=== PATIENT | male | born 1980 | race African-American/Black ===

== ENCOUNTER 2020-10-19 11:11 | Outpatient (REF) | payer MEDICAID, OTHER, SELFPAY | END 2020-10-19 11:12 | disposition home or self-care (01) | LOC: HO.LAB 11:11 | PROVIDERS: Visit Provider Internal Medicine | DX: Z20.828 Contact with and (suspected) exposure to other viral communicable diseases (principal) | CPT/HCPCS: C9803; U0003 ==

== ENCOUNTER 2020-10-19 11:35 | Emergency (ER) | payer MEDICAID, OTHER, SELFPAY ==
--- NOTE | 2020-10-19 11:53 | ED.GENADULT ---
HPI - General Adult General Chief complaint: General Medical Stated complaint: Covid symptoms Time Seen by Provider: 10/19/20 11:53 Source: patient and family Mode of arrival: ambulatory Limitations: no limitations History of Present Illness HPI narrative: just had COVID test here because he's worried he has it, [place] came [place] complaint: body aches, doesn't feel, well COVID exposure Onset (ago): day(s) (5) Severity: moderate Pain Consistency: constant Relieving factors: none Exacerbating factors: none Associated symptoms: fever/chills, headaches and loss of appetite Review of Systems Review of Systems: Constitutional : positive Fever, positive Chills, positive fatigue, positive Malaise ENT/Mouth : no sore throat, no runny nose Eyes: No Discharge Cardiovascular : No Chest Pain, No SOB Respiratory : No Cough, No Sputum Gastrointestinal : No Nausea, No Vomiting, No Diarrhea Genitourinary : No Dysuria, No Urinary Frequency Musculoskeletal : positive Myalgia Skin : No rash Neuro : No Headache PMFSH Past Medical History Attestation statement: The following information was validated with the patient. Medical History Asthma Social History Social History (Updated 10/19/20 @ 12:05 by Kristina Lenz DO) Smoking Status: Never smoker Advance Directives: No Advance Directives Information Provided: Yes Physical Exam Vital Signs: Appearance: Alert. Oriented X3. No acute distress. Eyes: Pupils equal, round and reactive to light. ENT: Pharynx normal. Neck: Normal inspection. Neck supple. CVS: Normal heart rate and rhythm. Pulses normal. Respiratory: No respiratory distress. Breath sounds normal. Abdomen: Soft and nontender. Skin: Skin warm and dry. Normal skin color. Normal skin turgor. Extremities: No lower extremity edema. No calf ttp Neuro: Oriented X 3. No motor deficit. No sensory deficit. Medical Decision Making MDM Narrative Medical decision making narrative: patient already had COVID test today, here for work note and nausea medicine with partner - not toxic, clear lungs, stable for DC with zofran and work note Discharge Plan Discharge Clinical Impression: Acute viral syndrome Patient Disposition: Home, Self-Care Instructions: Viral Syndrome (ED), COVID-19 (Coronavirus Disease 2019) (ED) Additional Instructions: return to ED for any worsening symptoms or concerns Stand Alone Forms: Work/School Release
== END 2020-10-19 12:37 | disposition home or self-care (01) ==
PROVIDERS: Emergency Provider Emergency Medicine
DX: M79.10 Myalgia, unspecified site (principal); Z20.828 Contact with and (suspected) exposure to other viral communicable diseases
CPT/HCPCS: 99281; 99283

== ENCOUNTER 2022-02-04 11:12 | Outpatient (REF) | payer OTHER, SELFPAY ==
[2022-02-04 13:34] LABS: Alanine Aminotransferase 31 U/L (0-40); Albumin Level 4.3 g/dL (3.5-5.0); Alkaline Phosphatase 63 U/L (39-117); Anion Gap 12 (12-20); Aspartate Amino Transferase 30 U/L (5-37); Bilirubin Total 1.5 mg/dL (0.0-1.0); Blood Urea Nitrogen 15 mg/dL (9-16); Calcium 9.1 mg/dL (8.4-10.2); Carbon Dioxide 27 mmol/L (22-29); Chloride 104 mmol/L (96-108); Cholesterol 179 mg/dL; Estimated Glomerular Filt Rate > 60; Glucose Fasting 94 mg/dL (60-99); HDL Cholesterol 56 mg/dL; LDL Cholesterol Calculated 115 mg/dl; Potassium 3.8 mmol/L (3.3-5.1); Sodium 139 mmol/L (135-145); Total Protein 7.7 g/dL (6.5-8.0); Triglycerides 40 mg/dL
[2022-02-04 13:55] LABS: TSH reflex Free T4 1.28 uIU/mL (0.32-4.0)
== END 2022-02-04 11:13 | disposition home or self-care (01) ==
LOC: HO.HMGCLDS 11:12
PROVIDERS: PCP Family Medicine; Visit Provider Family Medicine
DX: Z00.00 Encounter for general adult medical examination without abnormal findings (principal)
CPT/HCPCS: 36415; 80053; 80061; 84443

== ENCOUNTER 2022-06-06 15:28 | Emergency (ER) | payer OTHER, SELFPAY ==
--- NOTE | ~2022-06-06 | CT_ITS ---
EXAMINATION: CT SOFT TISSUE NECK WITH CONTRAST CLINICAL INFORMATION: Dysphagia, weight loss, fever COMPARISON: None TECHNIQUE: Following the intravenous administration of 100 mL of Omnipaque 350 intravenous contrast, helical imaging was performed in the axial plane with generation of coronal and sagittal reformatted images. This CT examination was performed using dose optimization techniques as appropriate, variously including the following: *Automated exposure control *Adjustment of mA and/or kV according to patient size (this includes techniques or standardized protocols for targeted exams where dose is matched to indication/reason for exam; i.e. extremities or head) *Use of iterative reconstruction technique DLP: . mGy-cm FINDINGS: No cervical adenopathy is identified. The parotid glands are homogeneous in attenuation. The submandibular glands are normal. No contour abnormality or pathologic enhancement is seen within the oral cavity or pharyngeal mucosal space. The laryngeal structures are normal. The parapharyngeal fat is preserved. The carotid sheath vasculature opacify normally. No extra mucosal soft tissue mass or fluid collection is seen. No retropharyngeal fluid collection is seen. The thyroid gland is normal. The superior mediastinum is unremarkable. The lung apices are clear. The mastoid air cells and visualized portions of the paranasal sinuses are well-aerated. The temporomandibular joints are normal. No periapical disease is identified. Mild degenerative disc space height loss and anterior endplate osteophytosis at C6-C7. No acute osseous abnormality or suspicious lytic or sclerotic osseous lesion The imaged portions of the brain parenchyma are unremarkable. CT/CT soft tissue neck w IV con IMPRESSION: Unremarkable examination.
--- NOTE | ~2022-06-06 | CT_ITS ---
EXAMINATION CT CHEST, ABDOMEN AND PELVIS WITH CONTRAST CLINICAL INFORMATION: Abdominal pain. Difficulty swallowing. Fever and weight loss. Evaluate for malignancy. COMPARISON: None. TECHNIQUE: Multidetector volumetric CT imaging of the chest, abdomen and pelvis was obtained after the administration of 85 mL of intravenous Omnipaque 350 without immediate adverse reactions. Coronal and sagittal reformats were reviewed. This CT examination was performed using dose optimization techniques as appropriate, variously including the following: *Automated exposure control *Adjustment of mA and/or kV according to patient size (this includes techniques or standardized protocols for targeted exams where dose is matched to indication/reason for exam; i.e. extremities or head) *Use of iterative reconstruction technique DLP: 2350 mGy-cm. FINDINGS: CHEST LUNGS/PLEURA: The lungs are clear with no evidence of inflammation or nodules. There is no pleural effusion. No pleural mass or thickening. MEDIASTINUM/AMELIA: Mild cardiomegaly. No pericardial effusion. Great vessels normal caliber. No mediastinal or hilar lymphadenopathy. CHEST WALL/AXILLA: Unremarkable. ABDOMEN/PELVIS HEPATOBILIARY: Liver normal in size, contour and morphology. No suspicious lesions. No intra or extrahepatic biliary dilation. Gallbladder unremarkable. PANCREAS: Unremarkable. SPLEEN: Unremarkable. ADRENAL GLANDS: Unremarkable. KIDNEYS, URETERS AND BLADDER: Kidneys normal in size, axis and morphology demonstrating symmetric enhancement. There is a 2.3 cm cyst in the lower pole left kidney which is benign and requires no further follow-up. No hydronephrosis or urinary calculi. Ureters normal in course and caliber. Bladder grossly unremarkable.. GASTROINTESTINAL TRACT: No bowel related abnormalities. PELVIC VISCERA: Mild prostatomegaly. There is asymmetric prominence of the right prostate gland. There is a periprostatic fat stranding and fat stranding about the seminal vesicles. LYMPH NODES: No lymphadenopathy. PERITONEUM/BODY WALL: Unremarkable. VASCULAR STRUCTURES: Unremarkable. OSSEOUS STRUCTURES There is a sclerotic lesion in the left iliac bone favored representing bone island. No additional focal osseous lesions are identified. No fractures. CT/CT abdomen pelvis w IV con IMPRESSION: * No evidence of intrathoracic malignancy. * Prostatomegaly with asymmetric prominence of the right prostate. There is also fat stranding about the prostate and seminal vesicles. These findings may relate to prostatitis, however an underlying prostate lesion is not excluded given the asymmetry. Correlate with PSA levels, digital rectal examination MRI of the prostate as clinically indicated. * There is a sclerotic lesion in the left iliac bone which is favored representing bone islands, however given the prostate findings, osseous metastasis is not entirely excluded. Consider nonemergent CT scan for further evaluation.
--- NOTE | ~2022-06-06 | CT_ITS ---
EXAMINATION: CT HEAD WITHOUT CONTRAST CLINICAL INFORMATION: Headache, fever, weight loss COMPARISON: None TECHNIQUE: Contiguous axial imaging was performed from the skull base to vertex without intravenous administration of contrast. This CT examination was performed using dose optimization techniques as appropriate, variously including the following: *Automated exposure control *Adjustment of mA and/or kV according to patient size (this includes techniques or standardized protocols for targeted exams where dose is matched to indication/reason for exam; i.e. extremities or head) *Use of iterative reconstruction technique DLP: 765 mGy-cm FINDINGS: There is no evidence of acute intracranial hemorrhage or territorial infarction. No abnormal mass effect or midline shift is seen. Sawyer to white matter differentiation is well preserved. No extra-axial fluid collections are identified. The ventricles are normal in size. There is no abnormal attenuation within the brain parenchyma. The osseous structures and soft tissues are normal. The mastoid air cells and visualized portions of the paranasal sinuses are well aerated. CT/CT head/brain wo IV con IMPRESSION: No acute intracranial pathology.
[2022-06-06 17:44] VITALS: BP 136/87; PULSE 110; RESP 19; TEMP 37.7; O2SAT 97; BMI 30.2
[2022-06-06 18:24] LABS: Appearance Urine CLEAR; Color Urine YELLOW; Glucose Urine UA NEG (NEG); Leukocyte Esterase Urine NEG (NEG); Nitrite Urine NEG (NEG); Specific Gravity - Urine >= 1.030 (1.005-1.025); Urine Blood TRACE (NEG); Urine Ketones NEG (NEG); Urine Protein NEG (NEG-TRACE)
[2022-06-06 18:35] LABS: Bacteria Urine TRACE /LPF; RBC Urine 0 /HPF (0); WBC Urine 0 /HPF (0-4)
[2022-06-06 21:20] LABS: Basophils Percent Auto 0.2 % (0-2); Eosinophils Percent Auto 0.1 % (0-4); Hematocrit 36.6 % (42.0-52.0); Hemoglobin 12.5 g/dl (14.0-18.0); Imm Gran Abs Auto 0.06 X10*3/uL (0.00-0.03); Imm Gran Pct Auto 0.5 % (0.0-0.4); Lymphocytes Absolute Auto 1.3 X10*3/uL (1.2-4.9); MANUAL DIFF FLAG SCAN; Mean Corpuscular HGB Conc 34.2 g/dl (31.0-36.0); Mean Corpuscular Hemoglobin 27.4 pg (27.0-33.0); Mean Corpuscular Volume 80.3 fL (80.0-98.0); Mean Platelet Volume 8.9 fL (9.4-12.4); Monocytes Absolute Auto 1.9 X10*3/uL (0.1-1.2); Monocytes Percent Auto 15.2 % (2-11); Neutrophils Absolute Auto 9.3 x10*3/uL (2.0-8.3); Platelet Count 255 X10*3/uL (160-400); Red Blood Count 4.56 X10*6/uL (4.60-5.80); Red Cell Distribution Width 13.5 % (11.0-16.0); SCAN SMEAR FLAG 1; White Blood Count 12.6 X10*3/uL (4.8-10.8)
[2022-06-06 21:40] LABS: Anion Gap 9 (12-20); Blood Urea Nitrogen 11 mg/dL (9-16); Calcium 8.5 mg/dL (8.4-10.2); Carbon Dioxide 30 mmol/L (22-29); Chloride 103 mmol/L (96-108); Creatinine Clr Calc Pharmacy 128.5; Estimated Glomerular Filt Rate > 60; Glucose Random 102 mg/dL (60-115); Potassium 3.8 mmol/L (3.3-5.1); Sodium 138 mmol/L (135-145)
[2022-06-06 21:44] LABS: SLIDE REVIEW VERIFIED
--- NOTE | 2022-06-07 00:20 | ED_ITS ---
HPI - General Adult General Chief complaint: General Medical Stated complaint: Fever Headache Cough Time Seen by Provider: 06/06/22 23:49 Source: patient and family (, Mariana) Mode of arrival: ambulatory Limitations: language barrier (Mongolian speaking only, from [facility]) History of Present Illness HPI narrative: 42-year-old male who presents emergency department for evaluation of multiple complaints. According to his , the patient has been sick for approximately 3 months. The patient initially had left lower back pain but then the pain shifted to his right lower back. He has been complaining of difficulty urinating, he described the difficulty as having to put a lot of pressure on his bladder in order to urinate. He states that he has also had some burning with urination. Patient is also been having a dry nonproductive cough that is been very persistent times months. Patient states that he occasionally coughs up blood. He has also had difficulty swallowing solids but not liquids. Over the last 3 weeks the patient has had fever mainly at night. He has had a constant moderate to severe headache which is worse at night. He has also had severe weakness and fatigue. The believes that he has had at least 20 lb weight loss. Patient has had occasional episodes of emesis. His states Today, the patient had increased difficulty urinating with increased dysuria, he was feeling very tired, weak and fatigued with severe body aches therefore came to emergency department to be seen. The patient is from [facility]. The last time was in [facility] was in June 2021 and he was not ill while he was there. He is not aware of any recent tick bites. 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 His is here in the emergency department with him. She states that they have tested him multiple times for COVID-19 and he has been negative. She also told me that he had a visit to the [facility] Emergency Department approximately 3 month prior with a negative workup. Related Data Previous Rx's Medication Instructions Recorded clindamycin phosphate 1 % topical 1 appl topical DAILY 30 days #75 mL 02/10/22 gel, once daily (Clindagel) back brace #1 ea 03/22/22 cyclobenzaprine 10 mg tablet 10 mg PO TID 1 month #90 tabs 04/05/22 gabapentin 600 mg tablet 600 mg PO QID 1 month #120 tabs 04/05/22 ibuprofen 800 mg tablet 800 mg PO Q8H #90 tabs 04/05/22 prednisone 20 mg tablet 40 mg PO DAILY 5 days #10 tabs 04/05/22 Allergies Allergy/AdvReac Type Severity Reaction Status Date / Time No Known Allergies Allergy Verified 06/06/22 17:44 Review of Systems Review of Systems: Yes all other systems are reviewed and are negative [facility] Past Medical History [facility] Narrative: Past medical history: None. Past surgical history: None. Social history: Patient is . 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 He denies tobacco, alcohol and drug use. 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 Current occupational exposures/hazards: No Cognitive needs: No Hearing needs: No Vision needs: No Physical Exam ED Vital Signs: Vital Signs - 24 hr 06/06/22 17:44 06/07/22 00:46 Temperature 99.8 F 98.7 F Pulse Rate 110 H 89 Respiratory Rate 19 18 Blood Pressure 136/87 Pulse Oximetry 97 98 Oxygen Delivery Method Room Air Room Air BMI result Body Mass Index 30.2 Const Other: Awake, alert, male patient, does not appear to be in distress, answers all questions appropriately [facility] Head: Yes normal to inspection, Yes normocephalic and Yes atraumatic Ears: external ears normal General nose exam: Normal external nose present Face and sinus: Yes normal facial exam Mouth: Normal oral and palatal mucosa present Throat: Yes posterior oropharynx normal Eyes General: appearance normal, both eyes and all related structures Pupils: Equal, round and reactive pupils present Neck Neck: Yes normal visual inspection, Yes no lymphadenopathy, Yes trachea midline and Yes supple Chest Chest palpation & inspection: normal inspection of the chest and normal palpation of entire chest wall Resp Effort & Inspection: normal respiratory effort and able to speak in complete sentences Auscultation: clear to auscultation bilaterally Cardio Rate: regular rate Rhythm: regular rhythm Heart sounds: S1 normal heart sound present, S2 normal heart sound present and no murmurs GI Inspection: Yes normal to inspection Palpation (GI): Soft to palpation, nontender and no guarding Auscultation: normal bowel sounds General: Yes no CVA tenderness Back/Spine/Pelvis Back: no CVA tenderness Skin General skin exam: no rashes or lesions noted Neuro Cranial nerves: Yes CN's II-XII intact bilaterally and Yes Equal, round and reactive pupils present Cognition (Neuro): normal cognition Motor exam (neuro): 5/5 motor strength present throughout Extrem General: Yes normal to inspection Psych Appearance: grossly normal Speech and movement: Normal speech and movement present Affect: normal affect Attitude: cooperative Thought process: Normal thought process present Thought content: Normal thought content present Course Course Course Narrative: 42-year-old male patient who presents emergency department for evaluation multiple complaints x3 months. The patient's been experiencing difficulty urinating, right flank pain, dry nonproductive cough with occasional hemoptysis, difficulty swallowing solids, fever, headache, myalgias weakness , fatigue and 20 lb unexplained weight loss. The differential includes was not limited to infectious process, malignancy. I ordered a CBC, BMP with liver panel, CPK, TSH, mono, CRP, sed rate, tick-borne illness panel, syphilis panel, urinalysis, GC, chlamydia, HIV, COVID-19, blood cultures x2. Patient was ordered to get normal saline x1 L, Toradol 15 mg IV and Zofran 4 mg IV. 0238: Laboratory evaluation: WBC was elevated 12,600 with elevated 74% neutrophils, elevated 15% monocytes and low lymphocytes of 10 %. ESR is elevated 42. CO2 elevated 30. ALT elevated 48. Alk-phos was normal 90. CK elevated to 50. CRP elevated 7.39. TSH was normal. COVID-19 was negative. Radiology evaluation: CT scan of the head and neck were unremarkable. CT scan of the chest, abdomen pelvis with IV contrast was interpreted by the radiologist as follows: IMPRESSION: * No evidence of intrathoracic malignancy. * Prostatomegaly with asymmetric prominence of the right prostate. There is also fat stranding about the prostate and seminal vesicles. These findings may relate to prostatitis, however an underlying prostate lesion is not excluded given the asymmetry. Correlate with PSA levels, digital rectal examination MRI of the prostate as clinically indicated. * There is a sclerotic lesion in the left iliac bone which is favored representing bone islands, however given the prostate findings, osseous metastasis is not entirely excluded. Consider nonemergent CT scan for further evaluation. Dictated By:Aidan Barba MD Given this finding, the patient be treated for prostatitis with ceftriaxone 500 mg IM and doxycycline 100 mg orally now and then doxycycline 100 mg twice a day for 14 days. There is a possibility of prostate cancer is the cause of his symptoms I did add a PSA to the patient's laboratory evaluation. Patient will be referred to Dr. Dyer for further evaluation. Test pending and he will need to follow-up (tick-borne illness panel, GC chlamydia, HIV, PSA) in these tests will need to be followed by the patient's PCP. Medical Decision Making Lab Data Result diagrams: 06/06/22 21:11 06/06/22 21:11 Labs: Lab Results 06/06/22 06/06/22 06/06/22 Range/Units 18:02 21:11 21:11 WBC 12.6 H (4.8-10.8) X10*3/uL RBC 4.56 L (4.60-5.80) X10*6/uL Hgb 12.5 L (14.0-18.0) g/dl Hct 36.6 L (42.0-52.0) % MCV 80.3 (80.0-98.0) fL MCH 27.4 (27.0-33.0) pg MCHC 34.2 (31.0-36.0) g/dl RDW 13.5 (11.0-16.0) % Plt Count 255 (160-400) X10*3/uL MPV 8.9 L (9.4-12.4) fL Immature Gran % (Auto) 0.5 H (0.0-0.4) % Neut % (Auto) 74.0 H (45-73) % Lymph % (Auto) 10.0 L (20-40) % [place] % (Auto) 15.2 H (2-11) % Eos % (Auto) 0.1 (0-4) % Baso % (Auto) 0.2 (0-2) % Lymph # (Auto) 1.3 (1.2-4.9) X10*3/uL [place] # (Auto) 1.9 H (0.1-1.2) X10*3/uL Eos # (Auto) 0.0 (0.0-0.4) X10*3/uL Baso # (Auto) 0.0 (0.0-0.2) X10*3/uL Abs Immat Gran (auto) 0.06 H (0.00-0.03) X10*3/uL Absolute Neuts (auto) 9.3 H (2.0-8.3) x10*3/uL Absolute Nucleated RBC 0.000 (0.0-0.012) X10*3/uL Nucleated RBC % (auto) 0.0 (0.0-0.2) /100WBC Smear Tech's Comments VERIFIED ESR (0-15) MM/HR Sodium 138 (135-145) mmol/L Potassium 3.8 (3.3-5.1) mmol/L Chloride 103 (96-108) mmol/L Carbon Dioxide 30 H (22-29) mmol/L Anion Gap 9 L (12-20) BUN 11 (9-16) mg/dL Creatinine 0.86 (0.5-1.4) mg/dL Estim Creat Clear Calc 128.5 Estimated GFR > 60 Random Glucose 102 (60-115) mg/dL Calcium 8.5 D (8.4-10.2) mg/dL Total Bilirubin (0.0-1.0) mg/dL Direct Bilirubin (0.0-0.5) mg/dL AST (5-37) U/L ALT (0-40) U/L Alkaline Phosphatase (39-117) U/L Total Creatine Kinase (38-174) U/L C-Reactive Protein (< or = 0.50) mg/dL Total Protein (6.5-8.0) g/dL Albumin (3.5-5.0) g/dL TSH Urine Color YELLOW Urine Appearance CLEAR Urine pH 6.0 (5.0-8.0) Ur Specific [place] >= 1.030 H (1.005-1.025) Urine Protein NEG (NEG-TRACE) MG/DL Urine Glucose (UA) NEG (NEG) MG/DL Urine Ketones NEG (NEG) MG/DL Urine Blood TRACE (NEG) Urine Nitrite NEG (NEG) Ur Leukocyte Esterase NEG (NEG) Urine RBC 0 (0) /HPF Urine WBC 0 (0-4) /HPF Ur Squamous Epith Cells NONE /LPF Urine Bacteria TRACE /LPF COVID-19 (SAVAGE) (Negative) COVID-19 Clin Com Monoscreen (Negative) 06/07/22 06/07/22 06/07/22 Range/Units 00:53 00:53 01:02 WBC (4.8-10.8) X10*3/uL RBC (4.60-5.80) X10*6/uL Hgb (14.0-18.0) g/dl Hct (42.0-52.0) % MCV (80.0-98.0) fL MCH (27.0-33.0) pg MCHC (31.0-36.0) g/dl RDW (11.0-16.0) % Plt Count (160-400) X10*3/uL MPV (9.4-12.4) fL Immature Gran % (Auto) (0.0-0.4) % Neut % (Auto) (45-73) % Lymph % (Auto) (20-40) % [place] % (Auto) (2-11) % Eos % (Auto) (0-4) % Baso % (Auto) (0-2) % Lymph # (Auto) (1.2-4.9) X10*3/uL [place] # (Auto) (0.1-1.2) X10*3/uL Eos # (Auto) (0.0-0.4) X10*3/uL Baso # (Auto) (0.0-0.2) X10*3/uL Abs Immat Gran (auto) (0.00-0.03) X10*3/uL Absolute Neuts (auto) (2.0-8.3) x10*3/uL Absolute Nucleated RBC (0.0-0.012) X10*3/uL Nucleated RBC % (auto) (0.0-0.2) /100WBC Smear Tech's Comments ESR (0-15) MM/HR Sodium (135-145) mmol/L Potassium (3.3-5.1) mmol/L Chloride (96-108) mmol/L Carbon Dioxide (22-29) mmol/L Anion Gap (12-20) BUN (9-16) mg/dL Creatinine (0.5-1.4) mg/dL Estim Creat Clear Calc Estimated GFR Random Glucose (60-115) mg/dL Calcium (8.4-10.2) mg/dL Total Bilirubin (0.0-1.0) mg/dL Direct Bilirubin (0.0-0.5) mg/dL AST (5-37) U/L ALT (0-40) U/L Alkaline Phosphatase (39-117) U/L Total Creatine Kinase (38-174) U/L C-Reactive Protein (< or = 0.50) mg/dL Total Protein (6.5-8.0) g/dL Albumin (3.5-5.0) g/dL TSH Cancelled Urine Color Urine Appearance Urine pH (5.0-8.0) Ur Specific [place] (1.005-1.025) Urine Protein (NEG-TRACE) MG/DL Urine Glucose (UA) (NEG) MG/DL Urine Ketones (NEG) MG/DL Urine Blood (NEG) Urine Nitrite (NEG) Ur Leukocyte Esterase (NEG) Urine RBC (0) /HPF Urine WBC (0-4) /HPF Ur Squamous Epith Cells /LPF Urine Bacteria /LPF COVID-19 (SAVAGE) Negative (Negative) COVID-19 Clin Com See Note Monoscreen Negative (Negative) 06/07/22 06/07/22 06/07/22 Range/Units 01:02 01:02 01:02 WBC (4.8-10.8) X10*3/uL RBC (4.60-5.80) X10*6/uL Hgb (14.0-18.0) g/dl Hct (42.0-52.0) % MCV (80.0-98.0) fL MCH (27.0-33.0) pg MCHC (31.0-36.0) g/dl RDW (11.0-16.0) % Plt Count (160-400) X10*3/uL MPV (9.4-12.4) fL Immature Gran % (Auto) (0.0-0.4) % Neut % (Auto) (45-73) % Lymph % (Auto) (20-40) % [place] % (Auto) (2-11) % Eos % (Auto) (0-4) % Baso % (Auto) (0-2) % Lymph # (Auto) (1.2-4.9) X10*3/uL [place] # (Auto) (0.1-1.2) X10*3/uL Eos # (Auto) (0.0-0.4) X10*3/uL Baso # (Auto) (0.0-0.2) X10*3/uL Abs Immat Gran (auto) (0.00-0.03) X10*3/uL Absolute Neuts (auto) (2.0-8.3) x10*3/uL Absolute Nucleated RBC (0.0-0.012) X10*3/uL Nucleated RBC % (auto) (0.0-0.2) /100WBC Smear Tech's Comments ESR 42 H (0-15) MM/HR Sodium (135-145) mmol/L Potassium (3.3-5.1) mmol/L Chloride (96-108) mmol/L Carbon Dioxide (22-29) mmol/L Anion Gap (12-20) BUN (9-16) mg/dL Creatinine (0.5-1.4) mg/dL Estim Creat Clear Calc Estimated GFR Random Glucose (60-115) mg/dL Calcium (8.4-10.2) mg/dL Total Bilirubin 0.8 (0.0-1.0) mg/dL Direct Bilirubin 0.3 (0.0-0.5) mg/dL AST 35 (5-37) U/L ALT 48 H (0-40) U/L Alkaline Phosphatase 90 D (39-117) U/L Total Creatine Kinase 250 H (38-174) U/L C-Reactive Protein 7.39 H (< or = 0.50) mg/dL Total Protein 7.3 (6.5-8.0) g/dL Albumin 4.0 (3.5-5.0) g/dL TSH 0.98 Urine Color Urine Appearance Urine pH (5.0-8.0) Ur Specific [place] (1.005-1.025) Urine Protein (NEG-TRACE) MG/DL Urine Glucose (UA) (NEG) MG/DL Urine Ketones (NEG) MG/DL Urine Blood (NEG) Urine Nitrite (NEG) Ur Leukocyte Esterase (NEG) Urine RBC (0) /HPF Urine WBC (0-4) /HPF Ur Squamous Epith Cells /LPF Urine Bacteria /LPF COVID-19 ([facility]AGE) (Negative) COVID-19 Clin Com Monoscreen (Negative) Discharge Plan Discharge Clinical Impression: Prostatitis, Asymmetric prostate, Weakness, Cough, Headache Instructions: Prostatitis (ED) Additional Instructions: Your blood work did reveal an increase in your inflammatory markers (ESR and C RP). Your white blood cell count was also elevated. The CT scan of your head was normal. The CT scan of your chest with IV contrast was normal. CT scan of your abdomen pelvis with IV contrast is concerning for a possible prostate infection as well as a symmetric appearance of the prostate with the r ight lobe of the prostate being larger than the left. This is concerning and can sometimes be caused by prostate cancer. I am treating you for a prostate infection with ceftriaxone 500 mg intramuscul marilu and doxycycline 100 mg twice a day for 14 days. Take ibuprofen 200 mg pills, 3 pills every 6 hours as needed for pain. Take Tylenol (acetaminophen) 500 mg pills, 2 pills every 4 to 6 hours as needed for pain. You will need to follow-up with our urologist in 1 week for re-evaluation. There are several other tests listed below that are pending that you will need to follow-up with your doctor for the results. Tick-borne illness panel HIV 1 and 2 Gonorrhea and chlamydia Syphilis panel Prescriptions: No Action clindamycin phosphate [Clindagel] 1 % gel, once daily 1 appl topical DAILY 30 Days Qty: 75 1RF (DME) back brace Misc See Rx Instructions .Route Qty: 1 0RF Rx Instructions: wear when working or walking cyclobenzaprine 10 mg tablet 10 mg PO TID 30 Days Qty: 90 1RF gabapentin 600 mg tablet 600 mg PO QID 30 Days Qty: 120 1RF ibuprofen 800 mg tablet 800 mg PO Q8H Qty: 90 1RF Rx Instructions: Take with food or milk prednisone 20 mg tablet 40 mg PO DAILY 5 Days Qty: 10 0RF Rx Instructions: take first thing in the am with food or mild to avoid stomach upset and difficulty sleeping
[2022-06-07 00:46] VITALS: PULSE 89; RESP 18; TEMP 37.1; O2SAT 98
[2022-06-07] MEDS: ondansetron HCL 4 MG/2 ML VIAL IVPUSH (01:14)
[2022-06-07] MEDS: 0.9 % Sodium Chloride 1,000 ML 999 ML IV (01:14)
[2022-06-07] MEDS: Ketorolac Tromethamine 15 MG/ML VIAL IVPUSH (01:14)
[2022-06-07 01:22] LABS: COVID-19 Test Negative (Negative)
[2022-06-07 01:29] LABS: Monotest Negative (Negative)
[2022-06-07 01:33] LABS: Alanine Aminotransferase 48 U/L (0-40); Alkaline Phosphatase 90 U/L (39-117); Aspartate Amino Transferase 35 U/L (5-37); Bilirubin Direct 0.3 mg/dL (0.0-0.5); Bilirubin Total 0.8 mg/dL (0.0-1.0); C Reactive Protein 7.39 mg/dL (< or = 0.50); Total Protein 7.3 g/dL (6.5-8.0)
[2022-06-07] MEDS: iohexoL 350 MG/ML 100 ML INFUS..BTL IV (01:41)
[2022-06-07 01:48] LABS: Erythrocyte Sedimentation Rate 42 MM/HR (0-15)
[2022-06-07 01:53] LABS: TSH reflex Free T4 0.98 uIU/mL (0.32-4.0)
[2022-06-07 03:47] LABS: Prostate Specific Antigen 8.87 ng/mL (<0.05-4.0)
[2022-06-07] MEDS: cefTRIAXone sodium 500 MG VIAL IM (03:47)
[2022-06-07 07:07] LABS: Syphilis Screen Nonreactive (Nonreactive)
[2022-06-07 08:05] LABS: HIV AB/AG Nonreactive (Nonreactive); HIV Num 1 0.12 S/CO (0.00-0.99)
[2022-06-07 11:53] LABS: CT PCR NOT DETECTED (Not Detect.); NG PCR NOT DETECTED (Not Detect.)
[2022-06-09 22:32] LABS: A. Phagocytphilium DNA,RT-PCR NOT DETECTED (NOT DETECTED); Babesia Microti DNA, RT-PCR NOT DETECTED (NOT DETECTED); Borrelia Miyamotoi,DNA RT-PCR NOT DETECTED (NOT DETECTED); E.Chaffeensis DNA RT-PCR NOT DETECTED (NOT DETECTED); Lyme(Borrelia ssp)DNA RT-PCR NOT DETECTED (NOT DETECTED)
[2022-06-10 07:51] LABS: Source-Tick borne disease BLOOD
== END 2022-06-07 04:22 | disposition home or self-care (01) ==
PROVIDERS: Emergency Provider Emergency Medicine Emergency Medical Services; PCP Family Medicine
DX: N42.89 Other specified disorders of prostate (principal); N41.9 Inflammatory disease of prostate, unspecified; Z20.822 Contact with and (suspected) exposure to COVID-19; R50.9 Fever, unspecified; R53.1 Weakness; R05.9 Cough, unspecified; R51.9 Headache, unspecified
CPT/HCPCS: 36415; 70450; 70491; 71260; 74177; 80048; 80076; 81001; 82550; 84153; 84443; 85025; 85652; 86140; 86308; 86780; 87040; 87389; 87491; 87591; 87635; 87798; 87801; 96361; 96372; 96374; 96375; 99284; J0696; J1885; J2405; Q9967

== ENCOUNTER 2022-09-21 12:45 | Outpatient (REF) | payer OTHER, SELFPAY | END 2022-09-21 12:46 | disposition home or self-care (01) | LOC: HO.LAB 12:45 | PROVIDERS: Visit Provider Family Medicine | DX: Z13.89 Encounter for screening for other disorder (principal) ==

== ENCOUNTER 2022-09-21 12:53 | Outpatient (REF) | payer OTHER, SELFPAY ==
[2022-09-21 13:59] LABS: MANUAL DIFF FLAG NO
[2022-09-21 14:03] LABS: Basophils Percent Auto 0.7 % (0-2); Eosinophils Absolute Auto 0.1 X10*3/uL (0.0-0.4); Eosinophils Percent Auto 1.6 % (0-4); Hematocrit 41.7 % (42.0-52.0); Imm Gran Abs Auto 0.02 X10*3/uL (0.00-0.03); Imm Gran Pct Auto 0.5 % (0.0-0.4); Lymphocytes Absolute Auto 1.8 X10*3/uL (1.2-4.9); Lymphocytes Percent Auto 42.3 % (20-40); Mean Corpuscular HGB Conc 33.6 g/dl (31.0-36.0); Mean Corpuscular Hemoglobin 26.8 pg (27.0-33.0); Mean Corpuscular Volume 79.9 fL (80.0-98.0); Mean Platelet Volume 10.2 fL (9.4-12.4); Monocytes Absolute Auto 0.4 X10*3/uL (0.1-1.2); Monocytes Percent Auto 9.4 % (2-11); Neutrophils Absolute Auto 1.9 x10*3/uL (2.0-8.3); Neutrophils Percent Auto 45.5 % (45-73); Platelet Count 254 X10*3/uL (160-400); Red Blood Count 5.22 X10*6/uL (4.60-5.80); Red Cell Distribution Width 14.2 % (11.0-16.0); White Blood Count 4.3 X10*3/uL (4.8-10.8)
[2022-09-21 14:06] LABS: Appearance Urine Clear; Color Urine Yellow; Glucose Urine UA Negative (Negative); Leukocyte Esterase Urine Negative (Negative); Nitrite Urine Negative (Negative); PH 6.5 (5.0-9.0); Specific Gravity - Urine 1.015 (1.005-1.025); Urine Blood Negative (Negative); Urine Ketones Negative (Negative); Urine Protein Negative (Neg-Trace)
[2022-09-21 15:01] LABS: Alanine Aminotransferase 27 U/L (0-40); Albumin Level 4.4 g/dL (3.5-5.0); Alkaline Phosphatase 67 U/L (39-117); Anion Gap 13 (12-20); Aspartate Amino Transferase 30 U/L (5-37); Bilirubin Total 1.1 mg/dL (0.0-1.0); Blood Urea Nitrogen 14 mg/dL (9-16); Calcium 9.1 mg/dL (8.4-10.2); Carbon Dioxide 26 mmol/L (22-29); Chloride 105 mmol/L (96-108); Estimated Glomerular Filt Rate > 60; Glucose Random 80 mg/dL (60-115); Prostate Specific Antigen Scr 0.36 ng/mL (<0.05-4.0); Sodium 140 mmol/L (135-145); Total Protein 7.7 g/dL (6.5-8.0)
== END 2022-09-21 12:54 | disposition home or self-care (01) ==
LOC: HO.WFDLDS 12:53
PROVIDERS: Visit Provider Family Medicine
DX: Z00.00 Encounter for general adult medical examination without abnormal findings (principal); R30.0 Dysuria; R97.20 Elevated prostate specific antigen [PSA]; Z12.5 Encounter for screening for malignant neoplasm of prostate; Z11.3 Encounter for screening for infections with a predominantly sexual mode of transmission
CPT/HCPCS: 36415; 80053; 81003; 84153; 85025; 87086

== ENCOUNTER 2023-02-12 09:47 | Outpatient (REF) | payer OTHER, SELFPAY ==
[2023-02-12 15:09] LABS: Appearance Urine Clear; Color Urine Yellow; Glucose Urine UA Negative (Negative); Leukocyte Esterase Urine Negative (Negative); Nitrite Urine Negative (Negative); PH 5.5 (5.0-9.0); Specific Gravity - Urine 1.025 (1.005-1.025); Urine Blood Negative (Negative); Urine Ketones Negative (Negative); Urine Protein Negative (Neg-Trace)
== END 2023-02-12 09:48 | disposition home or self-care (01) ==
LOC: HO.LAB 09:47
PROVIDERS: Visit Provider Family Medicine
DX: Z00.00 Encounter for general adult medical examination without abnormal findings (principal); M72.2 Plantar fascial fibromatosis; R39.15 Urgency of urination
CPT/HCPCS: 81003; 87086

== ENCOUNTER 2023-05-22 11:08 | Outpatient (AMB) | payer OTHER, SELFPAY ==
[2023-05-22 11:11] VITALS: BP 118/70; PULSE 70; RESP 16; TEMP 36.8; O2SAT 97; BMI 27.5
--- NOTE | 2023-05-22 11:11 | MHC.PC.OV ---
Vital Signs 05/22/23 11:11 Height 5 ft 9 in Weight 186 lb 2 oz BMI 27.5 BP 118/70 Blood Pressure Location Lt brachial Position Sitting Respiration 16 Pulse 70 Pulse Source Pulse Oximeter Temp 98.2 F Temp Source Oral Pulse Oximetry (%) 97 Oxygen Delivery Method Room Air Intake Visit Reasons: right arm, wrist pain Intake Note: Patient is here today with pain in lower waist and left leg, and bottom of feet, standing all day, causes a lot of pain, and right wrist pain with movement, he feels it worse when he is resting, epsom salts, biofreeze creams, not helping much. Accompanied by: Allergies No Known Allergies Allergy (Verified 05/22/23 11:39) Medication List - Last Reconciled 05/22/23 by Marino Gillis CNP back brace wear when working or walking cyclobenzaprine 10 mg PO TID 1 month ibuprofen 800 mg PO Q8H Tobacco use date assessed: 05/22/23 Dental Screening Dental Screen Date: 05/22/23 Did you have a dental visit in the last 12 months?: Yes Did you have a dental problem in the last 6 months where you did not have access to dental care?: No Was dental information given to patient?: No HPI HPI Comments History of Present Illness Details 42-year-old male, accompanied by his , presents with complaints of pain to the 2nd to 5th knuckles of his right hand. He describes the pain as an ache which is worse in the morning. He also reports chronic left-sided low back pain with radiation to his entire LLE. The pain intensified with prolonged standing and walking. 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 The pain is refractory to Ibuprofen and other supportive remedies. Denies injury, fall, or trauma. 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 Oswaldo Arroyo, Eliza Mcghee, Husam Brumfield and colleagues, with an educational eric from [employer]. Review of Systems Const Details: Const Denies chills, Denies fatigue, Denies fever(s), Denies headache(s) and Denies weakness ENT Denies change in vision, Denies dizziness, Denies headache(s), Denies hearing loss, Denies nasal congestion, Denies sinus pain, Denies sinus pressure and Denies sore throat Resp Denies cough, Denies dyspnea, Denies wheezing and Denies other (shortness of breath) Cardio Denies chest pain, Denies lightheadedness, Denies dyspnea and Denies other (palpitations) Neuro Denies dizziness, Denies headache(s), Denies numbness, Denies tingling and Denies weakness Musc Reports as per HPI Endo Denies fatigue Aller/Immun Denies wheezing Physical exam (Primary Care) Vital Signs: Last Vital Signs Temp 98.2 F 05/22/23 11:11 Pulse 70 05/22/23 11:11 Resp 16 05/22/23 11:11 BP 118/70 05/22/23 11:11 Pulse Ox 97 05/22/23 11:11 Oxygen Delivery Method Room Air 05/22/23 11:11 BMI result Body Mass Index 27.5 Tobacco/Smoking Status: Tobacco use Status Tobacco use date assessed 05/22/23 05/22/23 11:21 Patient Tobacco Use Status Never used Tobacco 05/22/23 11:21 e-Cigarette/Vaping Use Never Used 05/22/23 11:21 Thrive Assessment: Date of Thrive Assessment Date Thrive assessed 01/02/22 05/22/23 11:21 Const Other: Const General: well developed; No acute distress Nutritional Appearance: well nourished Orientation/consciousness: patient oriented x3 HEENT Head: Yes normocephalic and Yes atraumatic Eyes General: appearance normal, both eyes and all related structures Pupils: Equal, round and reactive pupils present EOM: EOMs intact bilaterally Resp Effort & Inspection: normal respiratory effort Auscultation: clear to auscultation bilaterally Cardio Rate: regular rate Rhythm: regular rhythm Heart sounds: S1 normal heart sound present, S2 normal heart sound present, no gallops, no murmurs and no rubs Bruits: no abdominal aortic bruits and no carotid bruits Back/Spine/Pelvis Back: no CVA tenderness Cervical Spine: cervical ROM normal and No Cervical spine tenderness Thoracic/Lumbar Spine: thoraco-lumbar ROM normal, No pain with thoraco-lumbar ROM, No thoracic spinal tenderness and positive lumbar spinal tenderness Extrem General: Yes normal to inspection, No edema and No calf tenderness Tenderness with ROM and palpation of the MCP joints of the right 2nd to 5th digits. No erythema or edema noted Neuro General: patient oriented x3 and gait normal, no focal neuro deficit Cranial nerves: Yes Equal, round and reactive pupils present Psych Affect: normal affect Assessment and Plan Assessment & Plan (1) Right hand pain: Code(s): M79.641 - Pain in right hand Plan: Tenderness with ROM and palpation of the MCP joints of the right 2nd to 5th digits. No erythema or edema noted Likely arthritis Naproxen ordered. Take as prescribed X-ray ordered Cold and warm compresses encouraged Work note given Follow-up with new or worsening symptoms Verbalized understanding and agreed with treatment plan. (2) Left-sided low back pain with sciatica: Code(s): M54.42 - Lumbago with sciatica, left side Plan: Lumbar tenderness Naproxen ordered. Take as prescribed Lumbar and left hip x-ray ordered Warm and cold compresses encouraged Follow-up with new or worsening symptoms Verbalized understanding and agreed with treatment plan Orders: Orders XR hand RT 2V Today M79.641 - Pain in right hand XR hip LT w PEL1V Today M54.42 - Lumbago with sciatica, left side XR lumbar spine 2-3V Today M54.42 - Lumbago with sciatica, left side Medications: New naproxen 500 mg PO BID 30 days PRN 60 tabs 2RF pain Discontinued ibuprofen Take with food or milk Discontinued Reason: Doctor's Order 800 mg PO Q8H 90 tabs 1RF Z71.84 - Encounter for health counseling related to travel Coding Level of Care Code Est Pt Level 3 (94082) Diagnoses Right hand pain M79.641 Left-sided low back pain with sciatica M54.42 Time Spent (min) 25
== END 2023-05-22 12:10 | disposition home or self-care (01) ==
PROVIDERS: PCP Family Medicine; Visit Provider Nurse Practitioner Family
DX: M79.641 Pain in right hand (principal); M54.42 Lumbago with sciatica, left side
CPT/HCPCS: 99213

== ENCOUNTER 2023-05-30 13:45 | Outpatient (AMB) | payer OTHER, SELFPAY ==
[2023-05-30 13:52] VITALS: BP 102/64; PULSE 81; RESP 12; TEMP 36.8; O2SAT 98; BMI 27.7
--- NOTE | 2023-05-30 13:52 | A.OFFPC_ITS ---
Vital Signs 05/30/23 13:52 Height 5 ft 9 in Weight 187 lb 6 oz BMI 27.7 BP 102/64 Blood Pressure Location Rt brachial Position Sitting Respiration 12 Pulse 81 Pulse Source Pulse Oximeter Temp 98.3 F Temp Source Temporal Artery Scan Pulse Oximetry (%) 98 Oxygen Delivery Method Room Air Intake Visit Reasons: Lower Back Pain/Feet/Headaches/Vomiting Intake Note: Patient states that the back,leg, foot pain has been going on for a while and has been getting worse due to his job. Patient states that vomitting Started Sunday night into sunday morning and continuing into sunday as well. Today patient states that he has a bad headache. Patient states that right hand knuckle has been paining him. Patient states that both feet has been having sharp shooting pain that goes up his leg. Patient states that its almost like a sciatic pain and it use to be on and off but now its more constant. Patient never received back brace that was prescribed and would like a new script sent over to [facility]. Patient states that he has been waking up with his eyes red and stay red. Area Loss Prevention Manager Required: Yes Area Loss Prevention Manager Name: Ana () Accompanied by: Spouse Allergies No Known Allergies Allergy (Verified 05/30/23 14:25) Medication List - Last Reconciled 05/30/23 by Marino Gillis CNP back brace wear when working or walking cyclobenzaprine 10 mg PO TID 1 month ibuprofen 800 mg PO Q6H naproxen 500 mg PO BID PRN 30 days Tobacco use date assessed: 05/22/23 Dental Screening Dental Screen Date: 05/30/23 Did you have a dental visit in the last 12 months?: No Did you have a dental problem in the last 6 months where you did not have access to dental care?: No Was dental information given to patient?: Yes HPI HPI Comments History of Present Illness Details 42-year-old male, accompanied by his , presents with complaints of ongoing pain to his right hand and left-sided lower back with radiation to his entire LLE. He was evaluated for similar complaints a week ago. He stated the pain intensifies with prolonged standing and walking. His symptoms has been ongoing for the past 2 years. He was prescribed naproxen in ordered x-rays. He states that the pain has been persistent since his last visit and waxes and wanes. He also reports right hip pain. He reports improvement with Naproxen and Cyclobenzaprine. He has not get x-rays done because he was waiting to be called to get them done. He requests time off from work. 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 1. Little interest or pleasure in doing things: not at all 2. Feeling down, depressed, or hopeless: not at all 3. Trouble falling or staying asleep, or sleeping too much: not at all 4. Feeling tired or having little energy: not at all 5. Poor appetite or overeating: not at all 6. Feeling bad about yourself - or that you are a failure or have let yourself or your family down: not at all 7. Trouble concentrating on things, such as reading the newspaper or watching television: not at all 8. Moving or speaking so slowly that other people could have noticed. Or the opposite - being so fidgety or restless that you have been moving around a lot more than usual: not at all 9. Thoughts that you would be better off or of hurting yourself in some way: not at all Total score: 0 Depression Screening Interpretation: Negative Source: Developed by Drs. Oswaldo Arroyo, Eliza Mcghee, Husam Brumfield and colleagues, with an educational eric from [employer]. Thrive Questionnaire Date Thrive assessed: 05/30/23 I am a: Patient What is your living situation today?: I have a steady place to live Within the past 12 months, did the food you bought not last and you didn't have the money to get more?: Never true Within the past 12 months, did you worry whether your food would run out before you got money to buy more?: Never true Do you have trouble paying for medicines?: No Do you have trouble getting transportation to medical appointments?: No Do you have trouble paying your heating and electricity bill?: No Do you have trouble taking care of your child, family member or friend?: No Do you have trouble with day-to-day activities such as bathing, preparing meals, shopping, managing finances, etc.?: No Are you currently unemployed and looking for a job?: No Are you interested in more education?: No Please select the resources that you would like help with: None Currently or been in a relationship where the following occur: no concerns reported AUDIT C Alcohol Use Questionnaire (AUDIT-C) 1. How often do you have a drink containing alcohol?: Monthly or less 2. How many drinks containing alcohol do you have on a typical day when you are drinking?: 1 or 2 3. How often do you have six or more drinks on one occasion?: Never Total Score: 1 ITALO-7 AMB Questionnaire ITALO-7 Date IATLO - 7 assessed: 05/30/23 Feeling nervous, anxious, or on edge: 0 = Not at all Not being able to stop or control worryin = Not at all Worrying too much about different things: 0 = Not at all Trouble relaxin = Not at all Being so restless that it is hard to sit still: 0 = Not at all Becoming easily annoyed or irritable: 0 = Not at all Feeling afraid as if something awful might happen: 1 = Several days Total ITALO-7 score (0-4 normal; 5-9 mild; 10-14 moderate; 15-21 severe): 1 Source: Developed by Drs. Oswaldo Arroyo, Eliza Mcghee, Husam Brumfield and colleagues, with an educational eric from [employer]. Review of Systems Const Details: Const Denies chills, Denies fatigue, Denies fever(s), Denies headache(s) and Denies weakness ENT Denies dizziness and Denies headache(s) Card Denies chest pain, Denies lightheadedness, Denies dyspnea and Denies other (Palpitations) Resp Denies cough, Denies dyspnea, Denies wheezing and Denies other ( shortness of breath) GI Denies abdominal pain, Denies melena, Denies hematochezia, Denies change in bowel habits, Denies dyspepsia and Denies nausea Denies hematuria and Denies dysuria Musc Reports back, hips, right hand, and LLE pain, Denies abnormal gait, Denies numbness and Denies tingling Skin/Breast Denies rash, Denies unusual bruising and Denies wounds Neuro Denies abnormal gait, Denies dizziness, Denies headache(s), Denies memory loss, Denies numbness, Denies Sensory deficit (Neuro), Denies tingling and Denies weakness Psych Denies anxiety and Denies depression Endo Denies fatigue Aller/Immun Denies wheezing Physical exam (Primary Care) Vital Signs: Last Vital Signs Temp 98.3 F 05/30/23 13:52 Pulse 81 05/30/23 13:52 Resp 12 05/30/23 13:52 BP 102/64 05/30/23 13:52 Pulse Ox 98 05/30/23 13:52 Oxygen Delivery Method Room Air 05/30/23 13:52 BMI result Body Mass Index 27.7 Tobacco/Smoking Status: Tobacco use Status Tobacco use date assessed 05/22/23 05/30/23 14:05 Patient Tobacco Use Status Never used Tobacco 05/30/23 14:08 e-Cigarette/Vaping Use Never Used 05/30/23 14:08 PHQ-9: PHQ-9 Score PHQ-9: Total score 0 05/30/23 14:12 Depression Screening Interpretation: Negative Thrive Assessment: Date of Thrive Assessment Date Thrive assessed 05/30/23 05/30/23 14:12 Currently or been in a relationship where the following occur: no concerns reported Const Other: General: no acute distress and well developed Nutritional Appearance: well nourished Orientation/consciousness: patient oriented x3 HENMT Head: Yes normocephalic and Yes atraumatic Eyes General: appearance normal, both eyes and all related structures Pupils: Equal, round and reactive pupils present EOM: EOMs intact bilaterally Resp Effort & Inspection: normal respiratory effort Auscultation: clear to auscultation bilaterally Cardio Rate: regular rate Rhythm: regular rhythm Heart sounds: S1 normal heart sound present, S2 normal heart sound present, no gallops, no murmurs and no rubs GI Palpation (GI): No Abdominal aortic bruit present, Soft to palpation, nontender, No hepatosplenomegaly present and No Rebound tenderness present Auscultation: normal bowel sounds General: Yes no CVA tenderness Back/Spine/Pelvis Back: no CVA tenderness Cervical Spine: cervical ROM normal and No Cervical spine tenderness Thoracic/Lumbar Spine: thoraco-lumbar ROM normal, No pain with thoraco-lumbar ROM, No thoracic spinal tenderness and No lumbar spinal tenderness Extrem General: Yes normal to inspection, No edema and No calf tenderness Negative straight leg raise bilaterally Skin General: warm and dry. Normal skin color. Normal skin turgor Lesions: no lesions Rashes: no rashes Trauma: no lacerations or abrasions Wounds: no wounds Nails: normal Neuro General: patient oriented x3, gait normal and no focal neuro deficit Cranial nerves: Yes Equal, round and reactive pupils present Cognition (Neuro): normal cognition Gait exam (Neuro): Normal gait present Motor exam (neuro): 5/5 motor strength present throughout Sensory Exam: No Sensory deficit (Neuro) Psych Affect: normal affect Assessment and Plan Assessment & Plan (1) Right hand pain: Code(s): M79.641 - Pain in right hand Plan: Reports lower back, hips, right hand, and LLE pain. He states that the pain has been persistent since his last visit and waxes and wanes. He reports improvement with Naproxen and Cyclobenzaprine. He has not get x-rays done because he was waiting to be called to get them done. Likely sprain, strain, or arthritis Naproxen as prescribed Advised to get x-ray done as soon as possible Cold and warm compresses encouraged Excuse letter given to be off from work for 1 week Encouraged to schedule a follow-up appointment with his PCP Return sooner with new or worsening symptoms Verbalized understanding and agreed with treatment plan. (2) Low back sprain: Code(s): S33.5XXA - Sprain of ligaments of lumbar spine, initial encounter Plan: As above (3) Left-sided low back pain with sciatica: Code(s): M54.42 - Lumbago with sciatica, left side Plan: As above (4) Right hip pain: Code(s): M25.551 - Pain in right hip Plan: As above Orders: Orders XR hip RT w PEL1V Today M25.551 - Pain in right hip Coding Level of Care Code Est Pt Level 4 (41862) Diagnoses Right hand pain M79.641 Low back sprain S33.5XXA Left-sided low back pain with sciatica M54.42 Right hip pain M25.551 Time Spent (min) 35
== END 2023-05-30 14:49 | disposition home or self-care (01) ==
PROVIDERS: PCP Family Medicine; Visit Provider Nurse Practitioner Family
DX: M79.641 Pain in right hand (principal); S33.5XXA Sprain of ligaments of lumbar spine, initial encounter; M54.42 Lumbago with sciatica, left side; M25.551 Pain in right hip
CPT/HCPCS: 99214

== ENCOUNTER 2024-01-25 10:12 | Outpatient (AMB) | payer OTHER, SELFPAY ==
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
[2024-01-25 10:31] VITALS: BP 110/70; PULSE 83; O2SAT 98
== END 2024-01-25 14:23 | disposition home or self-care (01) ==
PROVIDERS: PCP Family Medicine; Visit Provider Physician Assistant Medical
DX: M54.2 Cervicalgia (principal); V87.7XXA Person injured in collision between other specified motor vehicles (traffic), initial encounter; R07.9 Chest pain, unspecified; M54.59 Other low back pain
CPT/HCPCS: 93000; 99203

== ENCOUNTER 2024-01-25 10:50 | Outpatient (REF) | payer OTHER, SELFPAY ==
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
== END 2024-01-25 10:51 | disposition home or self-care (01) ==
LOC: HO.HMGCX 10:50
PROVIDERS: PCP Family Medicine; Visit Provider Physician Assistant Medical
DX: T14.90XD Injury, unspecified, subsequent encounter (principal); V87.7XXD Person injured in collision between other specified motor vehicles (traffic), subsequent encounter
CPT/HCPCS: 71046; 71110

== ENCOUNTER 2024-02-26 14:34 | Outpatient (AMB) | payer OTHER, SELFPAY ==
[2024-02-26 14:41] VITALS: BP 130/70; PULSE 63; O2SAT 97; BMI 27.6
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
== END 2024-02-26 15:16 | disposition home or self-care (01) ==
PROVIDERS: PCP Family Medicine; Visit Provider Family Medicine
DX: S33.5XXA Sprain of ligaments of lumbar spine, initial encounter (principal); R19.09 Other intra-abdominal and pelvic swelling, mass and lump; V87.7XXA Person injured in collision between other specified motor vehicles (traffic), initial encounter; Z04.3 Encounter for examination and observation following other accident
CPT/HCPCS: 99214

== ENCOUNTER 2025-04-16 13:52 | Outpatient (AMB) | payer OTHER, SELFPAY ==
[2025-04-16 13:55] VITALS: BP 122/84; PULSE 82; O2SAT 98; BMI 27.7
--- NOTE | 2025-04-16 13:55 | A.OFFPC_ITS ---
Vital Signs 04/16/25 13:55 Height 5 ft 9 in Weight 187 lb 8 oz BMI 27.7 BP 122/84 Blood Pressure Location Lt brachial Position Sitting Pulse 82 Pulse Source Pulse Oximeter Pulse Oximetry (%) 98 Oxygen Delivery Method Room Air Intake Visit Reasons: Check on his Prostate Laboratory Helper Required: No Accompanied by: Self / Same As Patient Allergies No Known Allergies Allergy (Verified 04/16/25 14:08) Medication List - Last Reconciled 04/16/25 by Jorge Ann PA-C back brace wear when working or walking cyclobenzaprine 10 mg PO BID 1 month meloxicam 15 mg PO DAILY 30 days Tobacco use date assessed: 04/16/25 Dental Screening Dental Screen Date: 04/16/25 Did you have a dental visit in the last 12 months?: Yes Did you have a dental problem in the last 6 months where you did not have access to dental care?: No Was dental information given to patient?: Patient has dentist HPI Check on his Prostate HPI Details The patient is a 44-year-old male presenting with concerns of urinary symptoms, chronic gastritis, and a persistent throat issue manifested as a chronic dry cough. The urinary symptoms present approximately every six months, with a history of severe exacerbations leading to emergency room visits. Abdomen imaging revealed a simple cyst on the left kidney and an umbilical hernia, with the latter being asymptomatic. Throat discomfort: Patient reports often having morning throat discomfort and congestion. His partner does report loud snoring and apneic episodes at night. Signs and symptoms concerning for obstructive sleep apnea thus will send for home sleep study to evaluate for obstructive sleep apnea. GERD: The gastrointestinal symptoms include significant stomach discomfort and vomiting episodes, which often require hospital intervention. The patient must adhere strictly to dietary restrictions to prevent symptom flares. The patient is also troubled by throat discomfort, a chronic cough, and substantial snoring that worsens upon lying flat, suggesting potential GERD and possible obstructive sleep apnea. .. Family history of prostate cancer: Patient has had symptoms decreased urinary output, pelvic pain that occur every six-month basis. Has had history of elevated PSA. Of note recent CT abdomen and pelvis without any evidence of prostate issue. 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 1. Little interest or pleasure in doing things: not at all 2. Feeling down, depressed, or hopeless: not at all 3. Trouble falling or staying asleep, or sleeping too much: not at all 4. Feeling tired or having little energy: not at all 5. Poor appetite or overeating: not at all 6. Feeling bad about yourself - or that you are a failure or have let yourself or your family down: not at all 7. Trouble concentrating on things, such as reading the newspaper or watching television: not at all 8. Moving or speaking so slowly that other people could have noticed. Or the opposite - being so fidgety or restless that you have been moving around a lot more than usual: not at all 9. Thoughts that you would be better off or of hurting yourself in some way: not at all Total score: 0 Depression Screening Interpretation: Negative Depression Screening Done: Yes 18723 - PHQ-9 Billing: Yes Source: Developed by Drs. Oswaldo Arroyo, Eliza Mcghee, Husam Brumfield and colleagues, with an educational eric from [employer]. Thrive Questionnaire Date Thrive assessed: 04/16/25 I am a: Patient What is your living situation today?: I have a place to live, but I am worried about losing it in the future Within the past 12 months, did the food you bought not last and you didn't have the money to get more?: I choose not to answer this question Within the past 12 months, did you worry whether your food would run out before you got money to buy more?: Never true Do you have trouble paying for medicines?: No Do you have trouble getting transportation to medical appointments?: No Do you have trouble paying your heating and electricity bill?: No Do you have trouble taking care of your child, family member or friend?: No Do you have trouble with day-to-day activities such as bathing, preparing meals, shopping, managing finances, etc.?: No Are you currently unemployed and looking for a job?: No Are you interested in more education?: No Please select the resources that you would like help with: None Currently or been in a relationship where the following occur: No concerns reported THRIVE Score: 1 AUDIT C Alcohol Use Questionnaire (AUDIT-C) 1. How often do you have a drink containing alcohol?: Never 3. How often do you have six or more drinks on one occasion?: Never Total Score: 0 ITALO-7 AMB Questionnaire ITALO-7 Date ITALO - 7 assessed: 04/16/25 Feeling nervous, anxious, or on edge: 0 = Not at all Not being able to stop or control worryin = Not at all Worrying too much about different things: 0 = Not at all Trouble relaxin = Not at all Being so restless that it is hard to sit still: 0 = Not at all Becoming easily annoyed or irritable: 0 = Not at all Feeling afraid as if something awful might happen: 0 = Not at all Total ITALO-7 score (0-4 normal; 5-9 mild; 10-14 moderate; 15-21 severe): 0 Source: Developed by Drs. Oswaldo Arroyo, Eliza Mcghee, Husam Brumfield and colleagues, with an educational eric from [employer]. Review of Systems Const Denies headache(s) Eyes Denies loss of vision ENT Denies vertigo, Denies dizziness, Denies headache(s) and Denies sore throat Card Denies chest pain, Denies leg edema and Denies lightheadedness Resp Denies cough, Denies hemoptysis and Denies wheezing GI Denies abdominal pain, Denies melena, Denies constipation, Denies diarrhea and Denies vomiting Denies dysuria, Denies urinary frequency and Denies urinary urgency Musc Denies arthralgias, Denies joint swelling, Denies numbness and Denies tingling Neuro Denies Abnormal speech present, Denies behavioral changes, Denies vertigo, Denies dizziness, Denies headache(s), Denies loss of vision, Denies memory loss, Denies numbness and Denies tingling Psych Denies anxiety, Denies behavioral changes, Denies depression, Denies memory loss and Denies panic attacks Vito/Lymph Denies easy bleeding and Denies easy bruising Aller/Immun Denies wheezing Physical exam (Primary Care) Vital Signs: Last Vital Signs Pulse 82 04/16/25 13:55 BP 122/84 04/16/25 13:55 Pulse Ox 98 04/16/25 13:55 Oxygen Delivery Method Room Air 04/16/25 13:55 BMI result Body Mass Index 27.7 Tobacco/Smoking Status: Tobacco use Status Tobacco use date assessed 04/16/25 04/16/25 14:02 Patient Tobacco Use Status Never used Tobacco 04/16/25 14:02 e-Cigarette/Vaping Use Never Used 04/16/25 14:02 PHQ-9: PHQ-9 Score PHQ-9: Total score 0 04/16/25 14:29 Depression Screening Interpretation: Negative Thrive Assessment: Date of Thrive Assessment Date Thrive assessed 04/16/25 04/16/25 14:02 Currently or been in a relationship where the following occur: No concerns reported Const General: healthy appearing, no acute distress, alert and awake Nutritional Appearance: well nourished Orientation/consciousness: oriented to person, oriented to place and oriented to time HENMT Ears: TM's normal bilaterally General nose exam: Normal nasal mucous membranes and turbinates present Eyes Conjunctivae: conjunctivae normal Sclerae: sclerae normal Pupils: Equal, round and reactive pupils present Neck Neck: Yes no lymphadenopathy and Yes no JVD Thyroid: Thyroid normal Carotids: no bruits Resp Effort & Inspection: normal respiratory effort and not tachypneic Auscultation: no crackles, no rales, no rhonchi and no wheezes Cardio Rate: regular rate Rhythm: regular rhythm Heart sounds: no murmurs and normal S1 and S2 GI Palpation (GI): Soft to palpation, nontender, no hepatomegaly and no splenomegaly Auscultation: normal bowel sounds Skin General skin exam: no rashes or lesions noted and dry skin Neuro General: oriented to person, oriented to place and oriented to time Cranial nerves: Yes Equal, round and reactive pupils present Speech: No Abnormal speech present Gait exam (Neuro): Normal gait present Motor exam (neuro): no tremor noted Extrem Right upper extremity: full ROM Left upper extremity: full ROM Right lower extremity: full ROM; no edema Left lower extremity: full ROM; no edema Psych Mental Status: mental status grossly normal Speech and movement: Normal speech and movement present Affect: normal affect Attitude: cooperative Thought process: Normal thought process present Coding Level of Care Code Est Pt Level 4 (60148) Diagnoses Elevated PSA R97.20 Screening for diabetes mellitus (DM) Z13.1 Gastroesophageal reflux disease without esophagitis K21.9 Esophagitis presence: without esophagitis YASH (obstructive sleep apnea) G47.33 Additional Codes PHQ-9 - 41717 - PHQ-9 Billing: Yes ([id number]) Assessment & Plan Assessment & Plan (1) Elevated PSA: Code(s): R97.20 - Elevated prostate specific antigen [PSA] Category: Medical Plan: We will conduct a PSA test and a urine analysis to differentiate between possible causes, considering family history and previous diagnoses. (2) Screening for diabetes mellitus (DM): Code(s): Z13.1 - Encounter for screening for diabetes mellitus Category: Medical Plan: As per HPI (3) GERD (gastroesophageal reflux disease): Code(s): K21.9 - Gastro-esophageal reflux disease without esophagitis Category: Medical Qualifiers: Esophagitis presence: without esophagitis Qualified Code(s): K21.9 - Gastro-esophageal reflux disease without esophagitis Plan: Addressing with diet changes, potential H. pylori test, and a PPi trial to manage excessive acid production and symptoms. (4) YASH (obstructive sleep apnea): Code(s): G47.33 - Obstructive sleep apnea (adult) (pediatric) Category: Medical Plan: As per HPI patient is significant other reports snoring and apneic episodes at night. Patient does admit to throat discomfort particularly in the mornings. Will send for sleep study to evaluate for obstructive sleep apnea. Orders: Orders Complete Blood Count no Diff 04/16/25 K21.9 - Gastro-esophageal reflux disease without esophagitis Comprehensive [place]. Panel Fast 04/16/25 Z13.1 - Encounter for screening for diabetes mellitus RT home sleep study 04/16/25 G47.33 - Obstructive sleep apnea (adult) (pediatric) H pylori Ag Stool 04/16/25 K21.9 - Gastro-esophageal reflux disease without eso phagitis Medications: New pantoprazole 20 mg PO DAILY 30 tabs 3RF 30 days K21.9 - Gastro-esophageal r eflux disease without esophagitis
--- OUTSIDE RECORDS SUMMARY | 2025-04-16 16:26 | XMS_ITS | Encounter Summary ---
Author Organization [employer] Address [address] [place] [address] [address] [place] [address] Care Team Providers Care Approver Name Role Phone Unavailable Primary Care Provider Unavailabl e Encounter Details Date Type Department Care Team (Latest Contact Info) Description 09/14/2021 Abstract [facility] CONVERSIONS Dental, Provider, DDS Social History Tobacco Use Types Packs/Day Years Used Date Smoking Tobacco: Never Assessed Sex and Gender Information Value Date Recorded Sex Assigned at Male 09/11/2022 10:29 AM EDT Legal Sex Male 10:29 AM EDT Gender Identity Choose not to disclose 2 10:29 AM EDT Sexual Orientation Choose not to disclose 2021 10:29 AM EDT documented as of this encounter Plan of Treatment Not on file documented as of this encounter Visit Diagnoses Not on filedocumented in this encounter
== END 2025-04-16 14:33 | disposition home or self-care (01) ==
LOC: HO.HMCH 13:53
PROVIDERS: PCP Family Medicine; Visit Provider Physician Assistant
DX: R97.20 Elevated prostate specific antigen [PSA] (principal); Z13.1 Encounter for screening for diabetes mellitus; K21.9 Gastro-esophageal reflux disease without esophagitis; G47.33 Obstructive sleep apnea (adult) (pediatric)

== ENCOUNTER → 2025-04-16 13:52 | Outpatient (BNVA) | payer OTHER, SELFPAY | PROVIDERS: PCP Family Medicine; Visit Provider Physician Assistant | DX: K21.9 Gastro-esophageal reflux disease without esophagitis (principal); K29.50 Unspecified chronic gastritis without bleeding; R05.3 Chronic cough; R97.20 Elevated prostate specific antigen [PSA]; G47.33 Obstructive sleep apnea (adult) (pediatric); Z80.42 Family history of malignant neoplasm of prostate | CPT/HCPCS: 96127; 99212 ==

== ENCOUNTER 2025-08-04 13:50 | Outpatient (AMB) | payer OTHER, SELFPAY ==
[2025-08-04 14:14] VITALS: BP 126/70; PULSE 71; RESP 18; TEMP 36.3; O2SAT 96; BMI 27.2
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
--- OUTSIDE RECORDS SUMMARY | 2025-08-04 17:03 | XMS_ITS | Encounter Summary ---
Author Organization [facility] Address [address] [facility] [address] [place] [phone] Phone Care Team Providers Care Product Development Specialist Name Role Phone Crescencio Reynolds MD Primary Care Provider Encounter Details Date Type Department Care Team (Latest Contact Info) Description 03/12/2024 Transcribe Orders Virtual Department [address] [place] [address] Corrina Lock, DARÍO [address] [place] [address] Low back pain, unspecified back pain laterality, unspecified chronicity, unspecified whether sciatica present (Primary Dx) Social History Tobacco Use Types [...] documented as of this encounter Visit Diagnoses Diagnosis Low back pain, unspecified back pain laterality, unspecified chronicity, unspecified whether sciatica present- Primary documented in this encounter Care Teams Product Development Specialist Relationship Specialty Start Date End Date Crescencio Reynolds MD [address] [place] [address] PCP - General Family Medicine 03/14/24 documented as of this encounter Additional Source Comments The information contained in this document represents components of the legal health record. It is not the complete legal health record.[facility]
--- OUTSIDE RECORDS SUMMARY | 2025-08-04 17:03 | XMS_ITS | Clinical Summary ---
Author Organization [facility] Address [address] [place] [phone] Phone Care Team Providers Care License Clerk Name Role Phone Crescencio Reynolds MD Primary Care Provider Social History Tobacco Use Types Packs/Day Years [...] on file Sexual Orientation Not on file Plan of Treatment Not on file Medical Devices Not on file Insurance [address] [place] [address] [facility] NON NSPG PCP [place] [employer] Base [employer] [facility] FULL [facility] PCP [facility] [facility] Member Subscriber Plan / Payer (Ef fective 2024-Present) Name:Sherley Browne Relation to Subscriber:Self Name:Sherley Browne Payer ID:[id number] Type:[facility] Address: [address] [facility] SAFETY NET FULL [facility] NON NSPG PCP [employer] Member Subscriber Plan / Payer (Ef fective 2024-Present) Name:Sherley Browne Relation to Subscriber:Self Name:Sherley Browne Payer ID:[id number] Type:[facility] Address: [address] [facility] FULL [facility] NON NSPG PCP [employer] [facility] Box [facility] FULL [facility] NON NSP PCP [facility] Base Forty [facility] [employer] NET FULL [facility] NON NSP PCP S[facility] [place] [address] [facility] SAF[facility] NET FULL Care Teams License Clerk Relationship Specialty Start Date End Date Crescencio Reynolds MD [address] [place] [address] PCP - General Family Medicine 03/14/24 Additional Source Comments The information contained in this document represents components of the legal health record. It is not the complete legal health record.[facility]
--- OUTSIDE RECORDS SUMMARY | 2025-08-04 17:03 | XMS_ITS | Clinical Summary ---
Author Organization [facility] Address [address] [place] [address] [address] [place] [address] Care Team Providers Care Firearms Model Maker Name Role Phone Unavailable Primary Care Provider Unavailabl e Social History Tobacco Use Types Packs/Day Years Used Date Smoking Tobacco: Never Assessed Sex and Gender Information Value Date Recorded Sex Assigned at Male 09/11/2022 10:29 AM EDT Legal Sex Male 10:29 AM EDT Gender Identity Choose not to disclose 10:29 AM EDT Sexual Orientation Choose not to disclose 2021 10:29 AM EDT Plan of Treatment Health Maintenance Due Date Last Done Comments Depression Screening 1982 Lipid Panel 1982 Disability Screening 1982 Alcohol/Substance Use Screening 1994 Tobacco Screening 1994 Family Planning (PISQ) 1997 HPV Vaccines (1 - 3-dose series) 1997 DTaP/Tdap/Td Vaccines (1 - Tdap) 2001 Hepatitis B Vaccines (1 of 3 - 19+ 3-dose series) 2001 COVID-19 Vaccine (1 - 2023-2 5 season) 2025 Influenza Vaccine (#1) 2025 11/28/2016 Zoster Vaccines (1 of 2) 2032 RSV Patients and Pa tients Aged 60 years or older (1 - 1-dose 75+ series) 2057 HIB Vaccines Aged Out No longer eligi ble based on patient's age to complete this topic Hepatitis A Vaccines Aged Out No long er eligible based on patient's age to complete this topic IPV Vaccines Aged Out No longer eligi ble based on patient's age to complete this topic Meningococcal B Vaccine Aged Out No l onger eligible based on patient's age to complete this topic Meningococcal Vaccine Aged Out No booker geetha eligible based on patient's age to complete this topic Pneumococcal Vaccine: Pediat rics (0 to 5 Years) and At-Risk Patients (6 to 49) Years Aged Out No longer eligi ble based on patient's age to complete this topic RSV under 20 months Aged Out No longe r eligible based on patient's age to complete this topic Rotavirus Vaccines Aged Out No longer eligible based on patient's age to complete this topic
--- OUTSIDE RECORDS SUMMARY | 2025-08-04 17:03 | XMS_ITS | Encounter Summary ---
Author Organization [facility] [facility] Address [address] [place] [address] [address] [place] [address] Care Team Providers Care Dispensary Technician Name Role Phone Unavailable Primary Care Provider [...]
--- OUTSIDE RECORDS SUMMARY | 2025-08-04 17:03 | XMS_ITS | Encounter Summary ---
Author Organization [employer] [facility] Address [address] [place] [address] [address] [place] [address] Care Team Providers Care Engine Turner Name Role Phone Unavailable Primary Care Provider Unavailabl e Encounter Details Date Type Department Care Team (Latest Contact Info) Description 04/20/2021 Abstract [facility] CONVERSIONS Dental, Provider, DDS Social [...]
== END 2025-08-04 14:51 | disposition home or self-care (01) ==
LOC: HO.HMCH 13:51
PROVIDERS: PCP Physician Assistant; Visit Provider Physician Assistant
DX: Z00.00 Encounter for general adult medical examination without abnormal findings (principal); F07.81 Postconcussional syndrome; G57.93 Unspecified mononeuropathy of bilateral lower limbs; R41.3 Other amnesia

== ENCOUNTER → 2025-08-04 13:50 | Outpatient (BNVA) | payer OTHER, SELFPAY | PROVIDERS: PCP Physician Assistant; Visit Provider Physician Assistant | DX: Z00.00 Encounter for general adult medical examination without abnormal findings (principal); F07.81 Postconcussional syndrome; G57.93 Unspecified mononeuropathy of bilateral lower limbs; R41.3 Other amnesia; R97.20 Elevated prostate specific antigen [PSA] | CPT/HCPCS: 99396 ==

== ENCOUNTER 2025-08-17 10:32 | Outpatient (AMB) | payer OTHER, SELFPAY ==
[2025-08-17 10:36] VITALS: BP 110/60; PULSE 102; O2SAT 95; BMI 27.3
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
--- OUTSIDE RECORDS SUMMARY | 2025-08-17 12:29 | XMS_ITS | Clinical Summary ---
Author Organization [employer] Address [address] [place] [address] 7t [place] [address] Care Team Providers Care Senior Housekeeper Name Role Phone Unavailable Primary Care Provider [...]
--- OUTSIDE RECORDS SUMMARY | 2025-08-17 12:29 | XMS_ITS | Encounter Summary ---
Author Organization [facility] Address [address] [facility] [address] [place] [address] Phone Care Team Providers Care Roller Pneumatic Name Role Phone Crescencio Reynolds MD Primary Care Provider Encounter Details Date Type Department Care Team (Latest Contact Info) Description 03/12/2024 Transcribe Orders Virtual Department [address] [place] [address] Corrina Lock, DARÍO [address] [place] [address] Low back pain, unspecified back pain laterality, [...] Primary documented in this encounter Care Teams Roller Pneumatic Relationship Specialty Start Date End Date Crescencio Reynolds MD [address] [place] [address] PCP - General Family Medicine 03/14/24 documented as of this encounter Additional Source Comments The information contained in this document represents components of the legal health record. It is not the complete legal health record.[facility]
--- OUTSIDE RECORDS SUMMARY | 2025-08-17 12:29 | XMS_ITS | Clinical Summary ---
Author Organization [facility] Address [address] [place] [phone] Phone Care Team Providers Care Mine Car Dispatcher Name Role Phone Crescencio Reynolds MD Primary [...] Medical Devices Not on file Insurance [address] [place] [address] [facility] NON NSPG PCP [facility] CONNECTORCARE K[employer] [facility] NET FULL [facility] PCP [facility] Member Subscriber Plan / Payer (Ef fective 2024-Present) Name:Sherley Browne Relation to Subscriber:Self Name:Sherley Browne Payer ID:[id number] Type:[facility] Address: [address] [facility] SAFETY NET FULL [facility] NON NSPG PCP [facility] [employer] CONNECTORCARE Member Subscriber Plan / Payer (Ef fective 2024-Present) Name:Sherley Browne Relation to Subscriber:Self Name:Sherley Browne Payer ID:[id number] Type:[facility] Address: [address] [facility] FULL [facility] NON NSPG PCP S[facility] CONNE[facility]ARE [facility] [employer] [facility] FULL [facility] NON NSP PCP [facility] Kollabora LIMITED HEALTH SAFETY NET FULL [facility] NON NSP PCP S[facility] [address] [facility] SAFETY NET FULL Care Teams Mine Car Dispatcher Relationship Specialty Start Date End Date Crescencio Reynolds MD [address] [place] [address] PCP - General Family Medicine 03/14/24 Additional Source Comments The information contained in this document represents components of the legal health record. It is not the complete legal health record.[facility]
--- OUTSIDE RECORDS SUMMARY | 2025-08-17 12:29 | XMS_ITS | Encounter Summary ---
Author Organization [employer] Address [address] [place] [address] 7 [place] [address] Care Team Providers Care Automatic Toe Laster Name Role Phone Unavailable Primary Care Provider [...]
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
--- OUTSIDE RECORDS SUMMARY | 2025-08-17 12:29 | XMS_ITS | Encounter Summary ---
Author Organization [employer] Address [address] [place] [address] 7 [place] [address] Care Team Providers Care Pharmacovigilance Safety Expert Name Role Phone Unavailable Primary Care Provider [...]
== END 2025-08-17 12:09 | disposition home or self-care (01) ==
LOC: HO.HSMS 10:33
PROVIDERS: PCP Physician Assistant; Visit Provider Nurse Practitioner Family
DX: R51.9 Headache, unspecified (principal); S06.9X9A Unspecified intracranial injury with loss of consciousness of unspecified duration, initial encounter; R41.3 Other amnesia; G43.709 Chronic migraine without aura, not intractable, without status migrainosus; G47.9 Sleep disorder, unspecified; R06.83 Snoring; G47.19 Other hypersomnia
CPT/HCPCS: 99204

== ENCOUNTER → 2025-08-17 10:32 | Outpatient (BNVA) | payer OTHER, SELFPAY | PROVIDERS: PCP Physician Assistant; Visit Provider Nurse Practitioner Family | DX: G43.709 Chronic migraine without aura, not intractable, without status migrainosus (principal); S06.9X9A Unspecified intracranial injury with loss of consciousness of unspecified duration, initial encounter; V43.02XA Car driver injured in collision with other type car in nontraffic accident, initial encounter; Y93.9 Activity, unspecified; Y92.410 Unspecified street and highway as the place of occurrence of the external cause; Y99.9 Unspecified external cause status; R41.3 Other amnesia; R06.83 Snoring; G47.19 Other hypersomnia | CPT/HCPCS: 99202 ==

== ENCOUNTER 2025-08-31 11:49 | Outpatient (REF) | payer OTHER, SELFPAY ==
[2025-08-31 12:36] LABS: Alanine Aminotransferase 32 U/L (0-40); Albumin Level 4.5 g/dL (3.5-5.0); Alkaline Phosphatase 74 U/L (39-117); Anion Gap 11 (12-20); Aspartate Amino Transferase 27 U/L (5-37); Blood Urea Nitrogen 12 mg/dL (9-16); Calcium 8.6 mg/dL (8.4-10.2); Carbon Dioxide 25 mmol/L (22-29); Chloride 107 mmol/L (96-108); Estimated Glomerular Filt Rate > 60; Potassium 4.0 mmol/L (3.3-5.1); Sodium 139 mmol/L (135-145); Total Protein 7.7 g/dL (6.5-8.0)
[2025-08-31 14:13] LABS: Hematocrit 42.4 % (42.0-52.0); Hemoglobin 14.1 g/dl (14.0-18.0); Mean Corpuscular HGB Conc 33.3 g/dl (31.0-36.0); Mean Corpuscular Hemoglobin 27.0 pg (27.0-33.0); Mean Corpuscular Volume 81.2 fL (80.0-98.0); NRBC Abs Auto 0.000 X10*3/uL (0.0-0.012); NRBC Pct Auto 0.0 /100WBC (0.0-0.2); Platelet Count 321 X10*3/uL (160-400); Red Blood Count 5.22 X10*6/uL (4.60-5.80); White Blood Count 3.4 X10*3/uL (4.8-10.8)
== END 2025-08-31 11:50 | disposition home or self-care (01) ==
LOC: HO.LAB 11:49
PROVIDERS: PCP Physician Assistant; Visit Provider Physician Assistant
DX: Z13.1 Encounter for screening for diabetes mellitus (principal); Z12.5 Encounter for screening for malignant neoplasm of prostate; R97.20 Elevated prostate specific antigen [PSA]; K21.9 Gastro-esophageal reflux disease without esophagitis
CPT/HCPCS: 36415; 80053; 84153; 85027

== ENCOUNTER → 2025-09-16 16:18 | Outpatient (BNV) | payer OTHER, SELFPAY | PROVIDERS: PCP Physician Assistant; Visit Provider Radiology Diagnostic Radiology | DX: F07.81 Postconcussional syndrome (principal) | CPT/HCPCS: 70551 ==

== ENCOUNTER 2025-09-16 16:20 | Outpatient (REF) | payer OTHER, SELFPAY ==
--- NOTE | ~2025-09-16 | MR_ITS ---
EXAMINATION: MR BRAIN WITHOUT CONTRAST CLINICAL INFORMATION: F07.81. Postconcussion syndrome. COMPARISON: Correlated to CT dated June 07, 2022. TECHNIQUE: MRI of the brain was obtained using routine sequences without contrast. FINDINGS: No restricted diffusion. No acute intracranial hemorrhage, mass effect, midline shift, hydrocephalus or herniation. Sawyer-white matter differentiation is normal. Posterior cranial fossa contents demonstrated no signal abnormality or mass effect. Craniocervical junction is intact with normal position of the cerebellar tonsils. Sellar/suprasellar region is normal. Focal susceptibility signal in the anterior left temporal lobe. Flow-void signal within the main cerebral vessels is normal. No signal abnormality or volume loss in the hippocampi. 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 No acute or structural brain abnormality. Electronically signed by: Juan Alberto Murillo MD 09/17/2025 06:44 AM EST
--- OUTSIDE RECORDS SUMMARY | 2025-09-16 18:58 | XMS_ITS | Clinical Summary ---
Author Organization [employer] Address [address] [place] [address] 7t [place] [address] Care Team Providers Care Director Of Medicare Name Role Phone Unavailable Primary Care Provider [...]
--- OUTSIDE RECORDS SUMMARY | 2025-09-16 18:58 | XMS_ITS | Clinical Summary ---
Author Organization [employer] [facility] Address [address] [place] [address] Phone Care Team Providers Care Speedboat Driver Name Role Phone Crescencio Reynolds MD Primary [...] file Medical Devices Not on file Insurance [facility] NON NSPG PCP [place] CONNECTORCARE Signature [facility] NET FULL [facility] PCP S[facility] Address: [address] [facility] SAFETY NET FULL [facility] NON NSPG PCP [facility] Address: [address] [facility] FULL [facility] NON NSPG PCP S[facility] [employer] CONNECTORCARE [facility] FULL [facility] NON NSP PCP [facility] Signature LIMITED HEALTH SAFETY NET FULL [facility] NON NSP PCP S[facility] [place] [address] [facility] SAFETY NET FULL Care Teams Speedboat Driver Relationship Specialty Start Date End Date Crescencio Reynolds MD PCP - General Family Medicine 03/14/24 Additional Source Comments The information contained in this document represents components of the legal health record. It is not the complete legal health record.[facility]
--- OUTSIDE RECORDS SUMMARY | 2025-09-16 18:58 | XMS_ITS | Encounter Summary ---
Author Organization [employer] Address [address] [place] [address] [address] [place] [address] Care Team Providers Care Director Of Radiology Name Role Phone Unavailable Primary Care Provider [...]
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
--- OUTSIDE RECORDS SUMMARY | 2025-09-16 18:58 | XMS_ITS | Encounter Summary ---
Author Organization [facility] Address [address] [facility] [address] [place] [address] Phone Care Team Providers Care Gas Appliance Servicer Helper Name Role Phone Crescencio Reynolds MD Primary Care Provider Encounter Details Date Type Department Care Team (Latest Contact Info) Description 03/12/2024 Transcribe Orders Virtual Department [address] [place] [address] Corrina Lock, DARÍO [address] [place] [address] Low back pain, unspecified back pain laterality, [...] Primary documented in this encounter Care Teams Gas Appliance Servicer Helper Relationship Specialty Start Date End Date Crescencio Reynolds MD PCP - General Family Medicine 03/14/24 documented as of this encounter Additional Source Comments The information contained in this document represents components of the legal health record. It is not the complete legal health record.[facility]
--- OUTSIDE RECORDS SUMMARY | 2025-09-16 18:58 | XMS_ITS | Encounter Summary ---
Author Organization [employer] Address [address] [place] [address] 7 [place] [address] Care Team Providers Care Blemish Remover Name Role Phone Unavailable Primary Care Provider [...]
== END 2025-09-16 16:21 | disposition home or self-care (01) ==
LOC: HO.MRI 16:20
PROVIDERS: PCP Physician Assistant; Visit Provider Physician Assistant
DX: F07.81 Postconcussional syndrome (principal); R41.3 Other amnesia
CPT/HCPCS: 70551